=== PATIENT | female | born 1975 | race Caucasian/White ===

== ENCOUNTER 2017-03-30 19:38 | Emergency (ER) | payer BC ==
[~2017-03-30] VITALS: Ht 172.7 cm; Wt 127.4 kg
[~2017-03-30 19:38] MED LIST: BUPR-79 PO; ETON1IMP2 INTRAD; FLUO40CA8 PO; GLC/500 PO; LEVO125T5 PO
[2017-03-30 19:51] VITALS: TEMP 36.8; Ht 172.7 cm; Wt 127.4 kg
[2017-03-30] MEDS ORDERED: SODIUM CHLORIDE 0.9% 1000ML 1,000 ML IV STA (20:22)
[2017-03-30] MEDS ORDERED: ONDANSETRON INJ 2 MG/ML 2 ML VIAL IV STA (20:22)
[2017-03-30] MEDS ORDERED: METHYLPREDNISOLONE 125 MG VIAL IV STA (20:22)
[2017-03-30] MEDS ORDERED: RANITIDINE HCL 50 MG/100 ML D5W IV STA (20:22)
[2017-03-30] MEDS ORDERED: DiphenhydrAMINE HCL 50 MG/ML VIAL IV STA (20:22)
[2017-03-30 20:25] VITALS: O2SAT 98
[2017-03-30 20:58] VITALS: BP 170/96; PULSE 76; O2SAT 98
[2017-03-30] MEDS ORDERED: AMOXICILLIN/CLAVULANATE TAB 875 MG TAB PO ONE (21:30)
[2017-03-30] MEDS ORDERED: AMOX875T PO (21:52)
--- NOTE | 2017-03-30 21:54 | EMERGENCY ROOM VISIT NOTE ---
History Report prepared by Enrique: Bandar Lu Under the Supervision of: Dr. Ashish Villa M.D. First contact with patient: 19:54 Chief Complaint: ALLERGIC REACTION Stated Complaint: ALLERGIC REACTION,RASH History of Present Illness The patient is a 41 year old white female with a past medical history of type II diabetes and depression who presents to the ED with a cc of a worsening generalized allergic reaction beginning two hours ago. Was seen in the clinic and prescribed Avelox for a sinus infection. Symptoms began after taking one dose of Avelox. Symptoms include a rash. No recent changes to medicines, diet, or hygienic products. Has taken Avelox before in the past without difficulty. Negative SOB, difficulty swallowing. Source of History: patient Onset: Two hours ago Position: other (generalized) Quality: other (allergic reaction) Timing: worsening Associated Symptoms: + rash, No SOB Note: Negative: difficulty swallowing. Review of Systems See HPI for pertinent positives and negatives. A total of ten systems were reviewed and were otherwise negative. Past Medical & Surgical Medical Problems: (1) Depression (2) Diabetes Family History No pertinent family history stated. Social History Smoking Status: Never Smoker Housing Status: lives with family Current/Historical Medications Scheduled Amoxicillin & Pot Clavulanate (Augmentin 875-125 mg), 875 MG PO BID Bupropion (Wellbutrin Sr), 150 MG PO DAILY Etonogestrel (Nexplanon), 68 MG INTRAD CONTINOUS Fluoxetine (Prozac), 40 MG PO DAILY Levothyroxine Sodium (Levothyroxine Sodium), 125 MCG PO DAILY Metformin Hcl (Glucophage), 500 MG PO BID Allergies Coded Allergies: Indomethacin (Verified Allergy, Unknown, 03/30/17) Physical Exam Vital Signs Date Time Temp Pulse Resp B/P (MAP) Pulse Ox O2 Delivery O2 Flow Rate FiO2 03/30/17 20:58 76 18 170/96 98 Room Air 03/30/17 20:25 98 Room Air 03/30/17 20:18 97 Room Air 03/30/17 20:18 76 18 165/86 98 Room Air 03/30/17 19:51 36.8 93 20 181/99 94 Room Air Physical Exam GENERAL: Awake, alert, well-appearing, NAD HENT: Normocephalic, atraumatic. Posterior oropharynx clear. EYES: Normal conjunctiva. Sclera non-icteric. NECK: Supple. No nuchal rigidity. FROM. No stridor. RESPIRATORY: CTAB, no rhonchi, wheezing, crackles CARDIAC: RRR, no MRG ABDOMEN: Soft, NTND, BS+ MSK: No chest wall TTP, no LE edema NEURO: GCS 15, CN 2-12 intact, moves all 4s on command SKIN: No jaundice noted. Blanching , confluent, non-pruritic rash to the back, chest and bilateral hands. Medical Decision & Procedures Medications Administered Medications (Trade) Dose Ordered Sig/Cordell Route Start Time Stop Time Status Last Admin Dose Admin Ranitidine HCl (zANTac IV) 50 mg NOW STAT IV 03/30/17 20:22 03/30/17 20:24 DC 03/30/17 20:46 50 MG Ondansetron HCl (Zofran Inj) 4 mg NOW STAT IV 03/30/17 20:22 03/30/17 20:24 DC 03/30/17 20:46 4 MG Sodium Chloride 1,000 ml @ 999 mls/hr Q1H1M STAT IV 03/30/17 20:22 03/30/17 21:22 DC 03/30/17 20:46 999 MLS/HR Methylprednisolone Sodium Succinate (Solu-Medrol IV) 125 mg NOW STAT IV 03/30/17 20:22 03/30/17 20:24 DC 03/30/17 20:46 125 MG Diphenhydramine HCl (Benadryl Inj) 50 mg NOW STAT IV 03/30/17 20:22 03/30/17 20:24 DC 03/30/17 20:46 50 MG Amoxicillin/ Clavulanate Potassium (Augmentin Tab) 875 mg NOW ONCE PO 03/30/17 21:30 03/30/17 21:31 DC 03/30/17 21:39 875 MG ED Course 2000: The patient was evaluated in room C11B. A complete history and physical exam was performed. 2150: I reevaluated the patient. Discussed results and discharge instructions: she verbalized understanding and agreement. The patient is ready for discharge. Medical Decision The patient is a 41 year old white female with a past medical history of type II diabetes and depression who presents to the ED with a cc of a worsening generalized allergic reaction beginning two hours ago. Differential diagnosis: Etiologies such as allergic reaction, anaphylaxis, urticaria, Ramirez-Deangelo syndrome, toxic epidermal necrolysis, erythema multiforme, cellulitis, as well as others were entertained. Patient was seen and evaluated the bedside. Patient was recently started on Avelox for a sinusitis. Patient states she took one dose and within an hour and a half she noticed some rash. During her triage and his shortness of breath however upon examination patient denied any shortness of breath. Patient exam she had no wheezing was non-stridulous in the posterior pharynx was clear. Patient did have a rash to the upper chest and back and bilateral hands. Patient did receive steroids, ranitidine, and Benadryl. Patient's rash resolved patient was feeling improved. Patient was given a dose of Augmentin which she tolerated without issue. Patient was given antibiotics for home. No prednisone was called and she had some from her earlier days visit at her primary care's office. Patient was given strict follow-up, discharge, and return precautions. All questions were answered. Patient was deemed suitable for outpatient follow-up at this time. Patient agreed with the plan of care and was safely discharged home. Medication Reconcilliation Current Medication List: was personally reviewed by me Blood Pressure Screening Patient's blood pressure: Elevated blood pressure Blood pressure disposition: Referred to PCP Impression Primary Impression: Allergic reaction Scribe Attestation The scribe's documentation has been prepared under my direction and personally reviewed by me in its entirety. I confirm that the note above accurately reflects all work, treatment, procedures, and medical decision making performed by me. Departure Information Dispostion Home / Self-Care Prescriptions Amoxicillin & Pot Clavulanate (Augmentin 875-125 mg) 1 Tab Tab 875 MG PO BID for 7 Days, #14 TAB Prov: Ashish Villa M.D. 03/30/17 Referrals Salvador Cabral M.D. (PCP) Patient Instructions ED Drug React Allergic, My [facility] Additional Instructions Please return to the emergency department if you have worsening or recurrent symptoms not amenable to at-home treatment. Please call for a follow-up appointment with her primary care physician. Please take your medications as prescribed. If you have other concerns and/or complaints please feel free to also call your primary care physician's office or return the ED for further evaluation, management, and treatment. You may take 600 mg Ibuprofen every 6 hours as needed for pain with food for no more than 2 consecutive days. You may take tylenol 1000 mg every 6 hours as needed for pain. You may take motrin and tylenol separately or at the same time. Take your medications as prescribed. If taking an antibiotic consider taking a probiotic and/or eating yogurt, but at the least, please take with food as it can cause upset stomach. Please stop taking the moxifloxacin and start taking the Augmentin. If culture results are not available at discharge, if they are positive for concern of infection, you will be informed of the results as soon as they are available. You have been examined and treated today on an emergency basis only. This is not a substitute for, or an effort to provide, complete comprehensive medical care. It is impossible to recognize and treat all injuries or illnesses in a single emergency department visit. It is therefore important that you follow up closely with [facility], your PCP, and/or your specialist(s). Call as soon as possible for an appointment. Thank you for your time and consideration. I look forward to speaking with you again soon. Please don't hesitate to call us if you have any questions. Problem Qualifiers Primary Impression: Allergic reaction Encounter type: initial encounter Qualified Codes: T78.40XA - Allergy, unspecified, initial encounter
== END 2017-03-30 22:06 | disposition home or self-care (01) ==
LOC: C.EDB 19:40 → C.EDA 22:06
DX: T78.40XA Allergy, unspecified, initial encounter (principal); X58.XXXA Exposure to other specified factors, initial encounter; E11.9 Type 2 diabetes mellitus without complications; F32.9 Major depressive disorder, single episode, unspecified; Z79.899 Other long term (current) drug therapy

== ENCOUNTER 2017-05-21 14:17 | Emergency (ER) | payer BC ==
[~2017-05-21] VITALS: Ht 172.7 cm; Wt 128.2 kg
[2017-05-21 14:26] VITALS: TEMP 37; Ht 172.7 cm; Wt 128.2 kg
[2017-05-21] MEDS ORDERED: KETOROLAC TROMETHAMINE 60 MG/2 ML VIAL IM STA (14:41)
[2017-05-21] MEDS ORDERED: DIAZEPAM 5MG TAB PO STA (14:41)
[2017-05-21] MEDS ORDERED: DIAZ10TA3 PO (14:59)
--- NOTE | 2017-05-21 15:02 | EMERGENCY ROOM VISIT NOTE ---
ED Visit Note First contact with patient: 14:30 CHIEF COMPLAINT: Low back pain HISTORY OF PRESENT ILLNESS: This is a 41-year-old female who presents to the emergency department complaining of pain in the low back which began X little this morning around 7 AM. Patient states that she was bending over to put her shoes morning when she felt a twinge in her lower back. This pain has become gradually worse, and is now constant, aching and sharp, across the entire part of her low back and radiates down into both butt cheeks and upper thighs, worse with movement, better with rest, 5/10. She has a prescription for etodolac which she took this morning immediately after the injury, but states this has not seemed to help. She has not tried any other medications. She denies any numbness, tingling, weakness in the legs, saddle paresthesias, bowel or bladder dysfunction, abdominal pain, nausea or vomiting. She has been able to walk without difficulty. She denies any recent direct trauma to the lower back or falls. She denies any previous significant injury, surgery, or injections to the lower back. REVIEW OF SYSTEMS: A complete 10 point review of systems was reviewed with the patient with pertinent positives and negatives as per history of present illness. All else were negative. PMH: Type 2 diabetes, hypothyroidism, anxiety, depression, arthritis SOCIAL HISTORY: Patient lives at home. She denies tobacco use, alcohol use, recreational drug use. ALLERGIES: Reviewed in chart PHYSICAL EXAM: Vital Signs: Reviewed Nurse's notes. CONSTITUTIONAL: No acute distress, mildly uncomfortable during exam. Well appearing and well nourished, obese. HEENT: Normocephalic, atraumatic. Pupils equal, round and reactive to light, EOMI. TMs normal. Pharynx normal. NECK: Supple, full active range of motion without discomfort. No midline tenderness to palpation. RESPIRATORY: Clear to auscultation bilaterally with no wheezing, crackles, rhonchi or stridor. Equal expansion bilaterally. CARDIOVASCULAR: Regular rate and rhythm with no murmurs, rubs or gallops. Normal peripheral perfusion, brisk cap refill and 2+ DP/PT pulses. No edema. GASTROINTESTINAL: Soft, nontender, nondistended. No palpable masses or HSM. Bowel sounds present in all quadrants. BACK: ROM of the lumbar spine region was limited due to pain. Pt was uncomfortable during exam. Pt made slow movements when asked to change position. No step-off deformities were palpated down the thoracic and lumbar spines. Tenderness to Palpation experienced at the level of the lumbar spine L3- L5 paraspinal muscle distribution. MUSCULOSKELETAL: Range of Motion - No tremors, ticks, or fasciculations of the lower extremities noticed during inspection. FROM of the lower extremities. No clonus noted with PROM of the lower extremities bilaterally. Pt able to perform straight leg raises B/L without any difficulty. Pt had +5/5 strength appreciated bilaterally in the lower extremities against examiner's resistance. INTEGUMENTARY: No rash or other significant dermatologic conditions noted. NEUROLOGIC: Alert and oriented X 4 with normal affect. Cranial nerves II-XII grossly intact. No focal neurologic deficits noted. +2 patellar and achilles reflexes bilaterally. EMERGENCY DEPARTMENT COURSE: I examined the patient. Differential diagnosis includes muscle spasm, musculoskeletal sprain/strain, lumbar radiculopathy, sciatica, disc herniation, among others. There is diffuse paraspinous muscle pain and spasm bilaterally across the lower back at the level of L3-L5, no midline bony tenderness or step-offs. I do not feel any imaging would be beneficial at this time, given no significant trauma and normal neurovascular exam, discussed with the patient and she agrees to no imaging. I treated with IM Toradol and PO Valium, with significant improvement in symptoms. Patient was encouraged to follow closely with her PCP if her symptoms do not improve in the next week, and advised that she may benefit from PT. She was also given strict return precautions should her symptoms, worsen, she verbalized understanding. Prescription for Valium sent to pharmacy, and she will continue to take her own prescribed NSAIDs at home. Patient was discharged home in stable condition and ambulatory. Problem List Medical Problems: (1) Depression Status: Chronic (2) Diabetes Status: Chronic Current/Historical Medications Scheduled Bupropion (Wellbutrin Sr), 150 MG PO DAILY Diazepam (Valium), 10 MG PO Q8H Etonogestrel (Nexplanon), 68 MG INTRAD UD Fluoxetine (Prozac), 40 MG PO DAILY Levothyroxine Sodium (Levothyroxine Sodium), 125 MCG PO DAILY Metformin Hcl (Glucophage), 500 MG PO BID Allergies Coded Allergies: Moxifloxacin (Verified Allergy, Intermediate, Rash, 05/21/17) Indomethacin (Verified Allergy, Unknown, 03/30/17) Vital Signs Date Time Temp Pulse Resp B/P (MAP) Pulse Ox O2 Delivery O2 Flow Rate FiO2 05/21/17 14:26 37.0 89 16 156/87 96 Room Air Medications Administered Medications (Trade) Dose Ordered Sig/Cordell Route Start Time Stop Time Status Last Admin Dose Admin Ketorolac Tromethamine (Toradol Inj) 60 mg NOW STAT IM 05/21/17 14:41 05/21/17 14:43 DC 05/21/17 14:56 60 MG Diazepam (Valium Tab) 10 mg NOW STAT PO 05/21/17 14:41 05/21/17 14:43 DC 05/21/17 14:55 10 MG Departure Information Impression Primary Impression: Strain of lumbar region Additional Impression: Lumbar radiculopathy, acute Dispostion Home / Self-Care Condition GOOD Prescriptions Diazepam (VALIUM) 10 Mg Tab 10 MG PO Q8H for 4 Days, #[address] WITH MEDICATION Prov: Kirsten Ferguson, ROSALES 05/21/17 Referrals Katie Posadas PA-C (PCP) Patient Instructions ED Back Care Tips, ED Exercises Lumbar Muscles, ED Sprain Strain Lumbar, My [facility] Additional Instructions Take it easy for the next few days, no strenuous activity, heavy lifting, or bending/twisting motions, to allow your back to rest. Alternate heat and ice for comfort. After heat, you may do gentle stretching and massage to the low back. You may take your own prescribed etodolac as needed for pain. You may also take Tylenol 1009 g every 8 hours as needed for pain. Valium muscle relaxer as prescribed, as needed for muscle tightness and spasms. This may make you drowsy. Do not drive or drink alcohol while taking. Follow up with your PCP in the next week for further management if your symptoms are not improving. You may benefit from physical therapy. Please return to the ER if any problems with bowel or bladder function, numbness in your groin, high fevers, severe abdominal pain or worsening back pain, or if loss of feeling/movement of legs. Work Instructions Return To Work: 1 day Problem Qualifiers Primary Impression: Strain of lumbar region Encounter type: initial encounter Qualified Codes: S39.012A - Strain of muscle, fascia and tendon of lower back, initial encounter
[2017-05-21 16:13] VITALS: BP 166/93; PULSE 84; O2SAT 98
[2017-05-21] MEDS ORDERED: BUPR-79 PO (18:17)
[2017-05-21] MEDS ORDERED: FLUO40CA8 PO (18:19)
[2017-05-21] MEDS ORDERED: LEVO125T5 PO (18:19)
[2017-05-21] MEDS ORDERED: GLC/500 PO (18:20)
[2017-05-21] MEDS ORDERED: ETON1IMP2 INTRAD (18:21)
== END 2017-05-21 16:15 | disposition home or self-care (01) ==
LOC: C.EDB 14:18 → C.EDD 16:15
DX: S39.012A Strain of muscle, fascia and tendon of lower back, initial encounter (principal); M54.16 Radiculopathy, lumbar region; X58.XXXA Exposure to other specified factors, initial encounter; F32.9 Major depressive disorder, single episode, unspecified; E11.9 Type 2 diabetes mellitus without complications